=== PATIENT | female | born 1965 | race Caucasian/White ===

== ENCOUNTER 2025-03-23 17:37 | Emergency (ER) | payer OTHER, SELFPAY ==
--- NOTE | ~2025-03-23 | XR_ITS ---
XR ankle LT min 3V INDICATION: fall on ice . COMPARISON: None. FINDINGS: Frontal, lateral and oblique views of the left ankle demonstrate acute nondisplaced oblique fracture of the distal fibula diaphysis. The ankle mortise is intact. IMPRESSION: Acute nondisplaced fracture of the distal fibula. Reviewed, dictated and finalized at location S. [facility]
[2025-03-23 18:28] VITALS: BP 134/101; PULSE 82; RESP 16; TEMP 36.8; O2SAT 97
[2025-03-23 21:38] VITALS: BP 141/79; PULSE 71; RESP 16; O2SAT 96
--- NOTE | 2025-03-23 22:31 | ED.LOWEXIN ---
HPI - Extremity Injury (Lower) General Chief Complaint: Extremity Injury, Lower Stated Complaint: fall Time Seen by Provider: 03/23/25 21:43 Source: patient Mode of arrival: ambulatory Limitations: no limitations History of Present Illness HPI Narrative: This is a 59 year old female that presents to the ER for injury to the left ankle. Reports she slipped and fell. She did not hit her head or lose consciousness. Reports swelling and pain to the left ankle. Denies decreased range of motion or numbness. Related Data Allergies Allergy/AdvReac Type Severity Reaction Status Date / Time No Known Allergies Allergy Verified 03/23/25 18:28 Review of Systems Review of Systems: All systems reviewed & are unremarkable except as noted in HPI and below Exam Narrative: GENERAL: Well-appearing, well-nourished, and in no acute distress. HEAD: Normocephalic, atraumatic. EYES: EOMI. EXTREMITIES: Normal range of motion. Edema about the left lateral malleoli. Normal DP pulse SKIN: Warm, dry, no rash. NEURO: No focal deficits. Alert and oriented x3. PSYCH: Normal mood and affect Course Vital Signs Vital signs: Vital Signs Temperature 98.3 F 03/23/25 18:28 Pulse Rate 82 03/23/25 18:28 Respiratory Rate 16 03/23/25 18:28 Blood Pressure 134/101 H 03/23/25 18:28 Pulse Oximetry 97 03/23/25 18:28 Oxygen Delivery Room Air 03/23/25 18:28 Temperature 98.3 F 03/23/25 18:28 Pulse Rate 71 03/23/25 21:38 Respiratory Rate 16 03/23/25 21:38 Blood Pressure 141/79 H 03/23/25 21:38 Pulse Oximetry 96 03/23/25 21:38 Oxygen Delivery Room Air 03/23/25 18:28 Procedures Orthopedic Splinting/Casting Injury #1: Splinting/Casting Date: 03/23/25 Splinting/Casting Time: 22:39 Side: left Lower Extremity Injury Location: ankle Splint: customized in ED OCL: short leg Pre-Procedure Neuro Vascular Exam: normal Post-Procedure Neuro Vascular Exam: normal MDM MDM Narrative Medical decision making narrative: Patient presents to the emergency department for left ankle pain after an injury today. She is neurovascularly intact. Left ankle x-ray shows a distal fibular fracture. Patient placed in short-leg posterior. Reports she has crutches at home. Will be given follow-up with Orthopedics Differential Diagnosis Differential Diagnosis: Ankle fracture, ankle sprain Imaging Data Radiologist's impression: ITS Impressions Ankle X-Ray 03/23/25 21:07 IMPRESSION: Acute nondisplaced fracture of the distal fibula. Critical Care Time Critical Care Time Critical Care Time: No Discharge Plan Discharge Clinical Impression: Fracture of distal end of fibula Qualifiers: Encounter type: initial encounter Fracture type: closed Fracture morphology: unspecified fracture morphology Laterality: left Qualified Code(s): S82.832A - Other fracture of upper and lower end of left fibula, initial encounter for closed fracture Patient Disposition: Home Condition: Stable Instructions: Ankle Fracture (ED) Additional Instructions: Return to the ER if you experience fever, redness and swelling of your extremity, numbness or any other symptoms that are concerning to you Wear splint and use crutches. No weight on the affected leg. Ice and elevate extremity. Pain medication as needed and directed. Follow up with orthopedics for further care. Patient Language: [place]alander Prescriptions: New hydrocodone-acetaminophen 5-325 mg tablet 1 tablet PO Q6H PRN (Reason: pain) Qty: 20 0RF Follow-up/Referrals: Boubacar Patel MD [Physician, Orthopedics] PHYSICIAN NOT ON STAFF,NONSTAFF [Primary Care Provider]
== END 2025-03-23 23:06 | disposition home or self-care (01) ==
LOC: ANHED 22:41
PROVIDERS: Emergency Provider Physician Assistant
DX: S82.832A Other fracture of upper and lower end of left fibula, initial encounter for closed fracture (principal); W01.0XXA Fall on same level from slipping, tripping and stumbling without subsequent striking against object, initial encounter
CPT/HCPCS: 29515; 73610; 99284